=== PATIENT | male | born 1990 | race Caucasian/White ===

== ENCOUNTER 2019-06-11 18:15 | Emergency (ER) | payer SELFPAY ==
--- NOTE | 2019-06-11 19:27 | RADIOLOGY REPORT (SQ) ---
EXAM DESCRIPTION: FINGER LEFT COMPLETED DATE/TIME: 06/11/2019 7:17 pm REASON FOR STUDY: laceration COMPARISON: None. NUMBER OF VIEWS: Three views. TECHNIQUE: AP, lateral, and oblique images acquired of the left second finger. LIMITATIONS: None. FINDINGS: MINERALIZATION: Normal. BONES: No acute fracture or dislocation. No worrisome bone lesions. SOFT TISSUES: No soft tissue swelling. No foreign body. OTHER: No other significant finding. IMPRESSION: NO RADIOGRAPHIC EVIDENCE OF ACUTE INJURY. TECHNICAL DOCUMENTATION: JOB ID: [id number] [employer]- All Rights Reserved Reading location - IP/workstation name: [email or web address]
--- NOTE | 2019-06-11 19:48 | ER Document Report ---
HPI - HPI Time Seen by Provider: 06/11/19 19:26 Pain Level: 3 Notes: Patient is an otherwise healthy 29-year-old male presenting to the emergency department with complaint of laceration. Patient reports he was cutting the dashboard of his car with a knife when the knife slipped and he cut his left index finger. The bleeding is controlled at this time. This occurred just prior to arrival. He reports he is unable to fully flex his finger. He does report his tetanus is up-to-date. Past Medical History - General Information source: Patient - Social History Smoking Status: Never Smoker Frequency of alcohol use: None Drug Abuse: None Family History: Reviewed & Not Pertinent - Medical History Medical History: Negative Surgical Hx: Negative - Immunizations Immunizations up to date: Yes Vertical Provider Document - CONSTITUTIONAL Notes: PHYSICAL EXAMINATION: GENERAL: Well-appearing, well-nourished and in no acute distress. HEAD: Atraumatic, normocephalic. EYES: Pupils equal round extraocular movements intact, conjunctiva are normal. ENT: Nares patent NECK: Normal range of motion LUNGS: No respiratory distress Musculoskeletal: Limited range of motion to left second digit, patient unable to fully flex the finger. Cap refill less than 3 seconds, normal sensation distal to injury. Exposure of tendon noted, tendon appears to be severed. NEUROLOGICAL: Normal speech, normal gait. PSYCH: Normal mood, normal affect. SKIN: 2 cm laceration noted over the PIP on the left index finger on the dorsal surface. This well approximates and is not actively bleeding. Course - Re-evaluation Re-evalutation: 06/11/19 19:48 Called and spoke with Dr. Means regarding patient's flexor tendon injury. I will close the laceration and he will call Dr. Means's office tomorrow to schedule a follow-up appointment. - Vital Signs Vital signs: Temp Pulse Resp BP Pulse Ox 98.0 F 142 H 19 120/69 100 06/11/19 19:04 06/11/19 19:04 06/11/19 19:04 06/11/19 19:04 06/11/19 19:04 Procedures - Immobilization Left index finger Pre-Proc Neuro Vasc Exam: Normal Immobilizer type: Finger splint (Static) Performed by: PCT Post-Proc Neuro Vasc Exam: Normal Alignment checked and good: Yes - Laceration/Wound Repair 2nd digit Wound length (cm): 2 Wound's Depth, Shape: Linear Anesthetic type: 1% Lidocaine Wound explored: Clean Wound Debrided: Minimal Wound Repaired With: Sutures Suture Size/Type: 5:0 Number of Sutures: 3 Layer Closure?: No Post-procedure NV exam normal: Yes Discharge - Discharge Clinical Impression: Laceration, Tendon injury Condition: Stable Disposition: HOME, SELF-CARE Additional Instructions: Laceration Care Your laceration has been sutured to keep the skin edges aligned during healing. The time of suture removal depends on the nature and location of your cut. Please follow the care instructions the doctor has outlined for you and return for further care, according to the schedule you've been given. Keep the wound and dressing clean. Unless you were told otherwise, you may shower daily, blotting the wound dry with a clean, unused towel. At other times, If the dressing gets wet or blood soaked, remove it and blot the wound dry, then reapply a new dressing. Unless you were instructed otherwise, dressings should be changed at least daily. If any signs of infection occur (swelling, redness, increasing tenderness, red streaks, tender lumps in the armpit or groin above the laceration, or fever), see the doctor immediately. Please contact Dr. Means's office in the morning to schedule an appointment. Let them know you were seen in the emergency department for a laceration with tendon injury. Let them know we called to Dr. Means and he wanted to see you in the office sometime in the next 1 to 2 days. Prescriptions: Amox Tr/Potassium Clavulanate [Augmentin 875-125 mg Tablet] 1 tab PO BID #20 tablet Referrals: DIOR MEANS DO [ACTIVE STAFF] - Follow up as needed
[2019-06-11] MEDS ORDERED: AMOXICILLIN TRIHYDRATE 500 MG CAPSULE PO ONE (19:50)
[2019-06-11] MEDS ORDERED: AMOXICILLIN TR/POT CLAVULANATE 500-125 MG TAB PO ONE (19:50)
[2019-06-11] MEDS ORDERED: LIDOCAINE 1% INJ-PF (10 MG/ML) 30 ML SDV INJ ONE (19:50)
[2019-06-11 20:57] VITALS: BP 128/72
== END 2019-06-11 21:03 | disposition home or self-care (01) ==
LOC: ER 18:15
PROC: 0HQGXZZ Repair Left Hand Skin, External Approach (ICD-10-PCS; principal; 2019-06-11)
DX: S56.122A Laceration of flexor muscle, fascia and tendon of left index finger at forearm level, initial encounter (principal); W26.0XXA Contact with knife, initial encounter
CPT/HCPCS: 73140; 12001; J3490; 99283

== ENCOUNTER → 2019-07-10 | Day surgery (SDC) | payer SELFPAY ==
[~2019-07-10] MED LIST: CEFAZOLIN SODIUM 2 GM in DEXTROSE 5%-WATER 100 ML IV PRN
== END ==
LOC: OROUT 13:19
PROVIDERS: ATTEND Orthopaedic Surgery
DX: R69 Illness, unspecified (principal)
CPT/HCPCS: J0690; J7060